=== PATIENT | female | born 1990 | race Caucasian/White ===

== ENCOUNTER 2021-01-06 16:47 | Emergency (ER) | payer SELFPAY ==
[~2021-01-06] VITALS: Ht 177.8 cm; Wt 140.6 kg
[2021-01-06] MEDS ORDERED: KETOROLAC TROMETHAMINE 30 MG/ML VIAL IV STA (17:40)
[2021-01-06] MEDS ORDERED: KETOROLAC TROMETHAMINE 30 MG/ML VIAL ONE (18:05)
[2021-01-06 18:24] VITALS: BP 165/101
== END 2021-01-06 18:24 | disposition home or self-care (01) ==
LOC: FSED 17:00
DX: R07.89 Other chest pain (principal); R94.31 Abnormal electrocardiogram [ECG] [EKG]
CPT/HCPCS: 71046; 80048; 80307; 81025; 83880; 84484; 85025; 85379; 93005; 99284; J1885

== ENCOUNTER 2021-12-07 18:15 | Emergency (ER) | payer MEDICARE ==
[~2021-12-07] VITALS: Ht 177.8 cm; Wt 140.6 kg
[2021-12-07 19:23] LABS: BASOPHILS # (AUTO) 0.1 (0.0-0.1); BASOPHILS % 0.4 % (0.0-1.0); EOSINOPHILS # (AUTO) 0.1 (0.0-0.4); EOSINOPHILS % 0.5 % (0.0-6.0); HEMATOCRIT 36.9 % (34.2-44.1); HEMOGLOBIN 10.8 g/dL (12.0-16.0); LYMPHOCYTES # (AUTO) 2.1 (1.0-3.2); LYMPHOCYTES % 14.6 % (18.0-39.1); MEAN CORPUSCULAR HEMOGLOBIN 22.8 pg (28-32); MEAN CORPUSCULAR HGB CONC 29.3 g/dL (31-35); MONOCYTES # (AUTO) 0.8 (0.2-0.8); MONOCYTES % 5.9 % (4.4-11.3); NEUTROPHILS % 78.2 % (38.7-80.0); PLATELET COUNT 337 x10e3/uL (140-360); RED BLOOD COUNT 4.73 x10e6/uL (3.6-5.1); RED CELL DISTRIBUTION WIDTH 15.2 % (11.7-14.4)
[2021-12-07 19:41] LABS: ANION GAP 17.1 mmol/L (8-16); CALCIUM 8.6 mg/dL (8.4-10.2); CREATININE, SERUM 0.8 mg/dL (0.57-1.11); POTASSIUM 4.1 mmol/L (3.5-5.1)
[2021-12-07 19:55] LABS: ALANINE AMINOTRANSFERASE 46 IU/L (0-55); ALBUMIN 3.5 g/dL (3.5-5.0); ALKALINE PHOSPHATASE 58 IU/L (40-150); BILIRUBIN,DIRECT 0.2 mg/dL (0.0-0.5); LIPASE 39 U/L (8-78)
[2021-12-07 20:02] LABS: HCG,QUANTITATIVE < 1.20 mIU/mL (0-10)
[2021-12-07] MEDS ORDERED: LIDOCAINE VISC 2% SOLN 15 ML UDC ONE (20:13)
[2021-12-07] MEDS ORDERED: MAGNESIUM/ALUMINUM/SIMETHICONE 30 ML UDC ONE (20:14)
[2021-12-07] MEDS ORDERED: BELLADONNA ALK/PHENOBARBITAL 5 ML UDC ONE (20:14)
[2021-12-07] MEDS ORDERED: DONNATAL/LIDOCAINE/MAALOX 30 ML SUSP PO STA (20:15)
[2021-12-07] MEDS ORDERED: OMEPRAZOLE40 MG PO (20:34)
[2021-12-07 20:47] VITALS: BP 148/98
== END 2021-12-07 20:49 | disposition home or self-care (01) ==
LOC: ER 18:20
DX: R10.13 Epigastric pain (principal)
CPT/HCPCS: 36415; 80048; 80076; 83690; 84702; 85025; 93005; 99283